=== PATIENT | female | born 1945 | race Caucasian/White ===

== ENCOUNTER 2021-05-20 12:14 | Emergency (ER) | payer MEDICARE, OTHER ==
[~2021-05-20] VITALS: Ht 167.6 cm; Wt 70.8 kg
--- NOTE | ~2021-05-20 | EMS ---
[facility] [address] [facility] [place] [address] EMS Patient Care Report Name: ROME MCKEON I Room: [facility]#: [id number] Admission: 05/20/21 Attend Phys: Discharge: Date of : 41 Report #: [id number] THIS REPORT FOR: //name// Report Transmitted: 05/20/2021 12:02 EMS Care Summary YESENIA BEDOLLA Incident [id number] @ 05/20/2021 11:35 Incident Location [address] [place] [id number] Patient ROME MCKEON Female, 75 Years 1945 Patient Address [address] [facility] Patient History Hypothyroidism, unspecified,Hypertension (HTN),Gastro-Esophageal Reflux Disease (GERD), Patient Allergies No known allergies, Patient Medications Lisinopril, Pantoprazole, , Chief Complaint Fainting/Syncope Disposition Transported No Lights/[place] Reason Unconscious/Fainting Transported To [facility] Narrative Dispatched to address noted for a syncopal episode. [facility] en route and on scene at time noted. Arrived and found the patient sitting upright in an aisle-way with staff around her. Patient was diaphortic and appeared weak, but was alert and oriented. Patient had a weak radial pulse and vitals where [facility] [address] [place] [address] EMS Patient Care Report Name: ROME MCKEON I Room: [facility]#: [id number] Admission: 05/20/21 Attend Phys: Discharge: Date of : 41 Report #: [id number] started. Staff stated that she had a fainting spell but did not hit her head or have obvious trauma. Patient stated she did not remember what had happened and had been feeling flu like symptoms for the past week. Patient was at the store today waiting on a [employer] testing center to open when this happened. patient stated no heart problems and no history of this. Patient stated she had been drinking water as normal but had a lack of appetite. patient was moved to the stretcher and stated she had to have a bowel movement. Seat belts where placed and she was taken to ambulance. Once in ambulance, vitals where taken at time noted. Patient had to call family to arrange for care of her dog that was in her car currently and they agreed. Patient stated she was having a bowel movement in her pants and we could not do anything for her at the moment. IV was obtained and fluids where started. [facility] chosen as the only hospital in the area not on High Volume status. 12 lead obtained as noted. While en route, vitals where taken at time noted. No major change occurred while en route. Radio report was given at time noted. Arrived and took patient to a triage wheel chair per staffs direction. A pad was placed on the chair and the RN was given verbal report. RN signed for patient and patient signed or self. END REPORT EMT-P Jace Gautam Initial Vitals @11:44SpO2: 93, @11:47SpO2: 92, @11:47 @11:44P: 88,R: 16,BP: 101/68, @12:04P: 67,R: 16,BP: 110/76, @11:44GCS: 15, @12:04GCS: 15, @11:42 @11:51Glucose: 199, Assessments @11:42MENTAL:SKIN:HEENT:LUNG SOUNDS:ABDOMEN:PELVIS//GI:EXTREMITIES:PULSE:NEURO: Impression Syncope / Fainting Procedures @11:50 IV Therapy - cc () Site: Forearm-Left Response: UnchangedSucceeded @11:50 IV Therapy - cc () Site: Forearm-Left Response: UnchangedSucceeded @11:47 12-Lead ECG Response: UnchangedSucceeded Timeline 11:30,Call Received 11:35,[place] [address] EMS Patient Care Report Name: ROME MCKEON I Room: [facility]#: [id number] Admission: 05/20/21 Attend Phys: Discharge: Date of : 41 Report #: [id number] 11:35,Psap Call 11:35,Dispatched 11:35,En Route 11:41,On Scene 11:42,At Patient 11:42,BP: / M,PULSE: ,RR: R,SPO2: Ox,ETCO2: ,BG: ,PAIN: ,GCS: , 11:44,BP: / M,PULSE: ,RR: R,SPO2: 93 Ox,ETCO2: ,BG: ,PAIN: ,GCS: , 11:44,BP: 101/68 M,PULSE: 88,RR: 16 R,SPO2: Ox,ETCO2: ,BG: ,PAIN: ,GCS: , 11:44,BP: / M,PULSE: ,RR: R,SPO2: Ox,ETCO2: ,BG: ,PAIN: ,GCS: 15, 11:47,12-Lead ECG,Response: UnchangedSucceeded, 11:47,BP: / M,PULSE: ,RR: R,SPO2: 92 Ox,ETCO2: ,BG: ,PAIN: ,GCS: , 11:47,BP: / M,PULSE: ,RR: R,SPO2: Ox,ETCO2: ,BG: ,PAIN: ,GCS: , 11:50,IV Therapy - cc Site: Forearm-Left,Response: UnchangedSucceeded, 11:50,IV Therapy - cc Site: Forearm-Left,Response: UnchangedSucceeded, 11:51,BP: / M,PULSE: ,RR: R,SPO2: Ox,ETCO2: ,B,PAIN: ,GCS: , 11:53,Depart Scene 12:04,BP: 110/76 M,PULSE: 67,RR: 16 R,SPO2: Ox,ETCO2: ,BG: ,PAIN: ,GCS: , 12:04,BP: / M,PULSE: ,RR: R,SPO2: Ox,ETCO2: ,BG: ,PAIN: ,GCS: 15, 12:09,At Destination 12:23,Call Closed Disclaimer [email or web address] Copyright 2021 [employer] This EMS Care Summary contains data elements from the applicable legal record (which may be displayed differently). It is designed to provide pertinent information for the following purposes: continuity of care, clinical quality, and state data reporting. The complete legal record is available to ED staff and administrators of the receiving hospital in [employer] Patient Tracker. All data is provided "as is."
[~2021-05-20 12:14] MED LIST: CIPRO500 MG PO; DULCOLAX5 MG PO; FLOMAX0.4 MG PO; LEVOTHYROXINE0.05 MG PO; LOVASTAT40 PO; LOVASTATIN 20 M20 MG PO; LUNESTA1 MG PO; LUNESTA3 MG PO; MILK OF MA2400 MG/10 PO; MIRALAX17 GM PO; NEURONTIN 300M300 M2 PO; NITROFURANTOIN100 MG PO; ONDANSETRON HCL4 M2 PO; PERCOCET 7.5-31 EACH PO; SYNTHROID100 MCG PO; TRAMADOL 50 MG50 MG PO; XANAX 0.25 MG0.25 MG PO; XANAX1 MG PO; ZOFRAN4 MG PO
[2021-05-20 13:06] LABS: ABSOLUTE BASOPHILS 0.1 thou/uL (0.0-0.2); ABSOLUTE EOSINOPHILS 0.1 thou/uL (0.0-0.7); ABSOLUTE LYMPHOCYTES 2.3 thou/uL (0.8-5.3); ABSOLUTE MONOCYTES 0.8 thou/uL (0.0-1.2); ABSOLUTE NEUTROPHILS 4.6 thou/uL (1.6-8.1); BASOPHILS 1.1 %; EOSINOPHILS 1.3 %; HEMATOCRIT 43.2 % (37.0-47.0); HEMOGLOBIN 15.1 gm/dL (12.0-15.0); LYMPHOCYTES 29.2 %; MCH 30.8 pg (26.0-34.0); MONOCYTES 9.8 %; MPV 7.6 fl. (7.2-11.1); NUCLEATED RBCS 0 /100WBC; PLATELET COUNT* 204 thou/uL (150-400); POLYS 58.6 %; RBC 4.91 mil/uL (4.20-5.00); RDW-CV 12.9 % (10.5-14.5); WBC 7.9 thou/uL (4.0-11.0)
--- NOTE | 2021-05-20 13:14 | EKG ---
[place] [address] ELECTROCARDIOGRAM REPORT Name: MCKEONROME I Room: [facility]#: [id number] Admission: 05/20/21 Attend Phys: Discharge: Date of : 41 Date of Service: 05/20/21 1254 Report #: [id number] THIS REPORT FOR: //name// [facility] ED Test Date: 2021-05-20 Test Time: 12:54:16 Pat Name: ROME MCKEON Department: Room: Gender: Service [employer] Driver: [facility] : 1945 Requested By: Tia Sanon Order Number: [id number] MD: Pawan Rowe Measurements Intervals [place] Rate: 90 P: 44 MN: 168 QRS: -13 QRSD: 90 T: 140 QT: 367 QTc: 449 Interpretive Statements Sinus rhythm Abnormal R-wave progression, late transition Inferior infarct, old No previous ECG available for comparison Electronically Signed On 05-20-2021 13:13:56 HEATING TECHNICIAN by Pawan Rowe [email or web address] <ELECTRONICALLY SIGNED> By: Pawan Rowe MD, [facility] 05/20/21 1313 1254 1254 Pawan Rowe MD, FACC /EPI
[2021-05-20 13:15] LABS: CALCIUM 8.8 mg/dL (8.5-10.1); CREATININE 1.4 mg/dL (0.6-1.3); POTASSIUM 3.2 mmol/L (3.5-5.1)
[2021-05-20 13:19] LABS: MAGNESIUM 1.9 mg/dL (1.8-2.4); TOTAL PROTEIN 7.9 g/dL (6.4-8.2)
[2021-05-20 13:31] LABS: INFLUENZA A ANTIGEN Negative (Negative); INFLUENZA B ANTIGEN Negative (Negative)
[2021-05-20 14:57] VITALS: BP 149/77
== END 2021-05-20 14:58 | disposition home or self-care (01) ==
LOC: M.ERS 12:14
PROVIDERS: Nurse Practitioner Family
DX: U07.1 COVID-19 (principal); R55 Syncope and collapse; E78.00 Pure hypercholesterolemia, unspecified; Z87.442 Personal history of urinary calculi; Z79.899 Other long term (current) drug therapy; Z79.2 Long term (current) use of antibiotics